=== PATIENT | female | born 1980 | race Caucasian/White ===

== ENCOUNTER → 2017-10-27 | Outpatient (CLI) | payer MEDICAID, OTHER ==
[2017-10-27 11:46] LABS: ABSOLUTE EOSINOPHILS # (AUTO) 0.2 10^3/uL (0.0-0.6); ABSOLUTE LYMPHOCYTES (AUTO) 1.7 10^3/uL (0.5-4.7); ABSOLUTE MONOCYTES (AUTO) 0.5 10^3/uL (0.1-1.4); ABSOLUTE NEUT (AUTO) 4.2 10^3/uL (1.7-8.2); BASOPHILS % (AUTO) 0.4 % (0-2); EOSINOPHILS % (AUTO) 2.4 % (0-6); HEMATOCRIT 40.1 % (36.0-47.0); HEMOGLOBIN 13.9 g/dL (12.0-15.5); HGB HCT DIFFERENCE 1.6; LYMPHOCYTES % (AUTO) 25.6 % (13-45); MEAN CORPUSCULAR HEMOGLOBIN 29.5 pg (27.0-33.4); MEAN CORPUSCULAR HGB CONC 34.7 g/dL (32.0-36.0); MEAN CORPUSCULAR VOLUME 85 fl (80-97); MONOCYTES % (AUTO) 7.2 % (3-13); RED BLOOD COUNT 4.72 10^6/uL (3.72-5.28); RED CELL DISTRIBUTION WIDTH 13.6 % (11.5-14.0); SEGMENTED NEUTROPHILS % (AUTO) 64.4 % (42-78); WHITE BLOOD COUNT 6.6 10^3/uL (4.0-10.5)
--- NOTE | 2017-10-27 11:54 | EKG REPORT ---
SEVERITY:- BORDERLINE ECG - SINUS RHYTHM INFERIOR Q WAVES, PROBABLY NORMAL VARIATION : Confirmed by: Kalen Garcia 27-Oct-2017 11:53:08
[2017-10-27 12:17] LABS: ANION GAP 13 (5-19); BLOOD UREA NITROGEN 14 mg/dL (7-20); CALCIUM 9.7 mg/dL (8.4-10.2); CARBON DIOXIDE 25 mmol/L (22-30); CHLORIDE 104 mmol/L (98-107); CREATININE RESULT 0.59 mg/dL (0.52-1.25); GLUCOSE 72 mg/dL (75-110); POTASSIUM 4.5 mmol/L (3.6-5.0); SODIUM 142.4 mmol/L (137-145)
== END ==
LOC: OD 10:06
PROVIDERS: ATTEND Orthopaedic Surgery
DX: Z01.810 Encounter for preprocedural cardiovascular examination (principal); Z01.812 Encounter for preprocedural laboratory examination; Z01.818 Encounter for other preprocedural examination
CPT/HCPCS: 36415; 80048; 85025; 93005; 93010

== ENCOUNTER 2018-02-06 02:58 | Emergency (ER) | payer OTHER ==
[2018-02-06] MEDS ORDERED: FENTANYL CITRATE INJ/PF 100 MCG/2 ML AMPUL IV ONE ×2 (03:11→05:59)
[2018-02-06] MEDS ORDERED: NORMAL SALINE 1000 ML 1,000 ML IV ONE (03:11)
--- NOTE | 2018-02-06 03:14 | ER Document Report ---
ED General <JORGE REYES - Last Filed: 02/06/18 06:40> <VANCE ARAMBULA E - Last Filed: 02/06/18 12:07> - General Chief Complaint: Abdominal Pain Stated Complaint: ABDOMINAL PAIN Time Seen by Provider: 02/06/18 03:06 Notes: Patient is a 37-year-old female presents with complaint of right upper quadrant abdominal pain for 2 days. Pain is much worse with eating. Nausea. No vomiting. No diarrhea. No fevers. Previous abdominal surgery includes hysterectomy. No history of abdominal cancers. No other complaints at this time. No dysuria. She does not drink alcohol. She does not smoke or do drugs. (JORGE REYES) - Related Data Allergies/Adverse Reactions: latex Allergy (Verified 02/06/18 03:00) levofloxacin Allergy (Verified 02/06/18 03:00) Past Medical History - Social History Smoking Status: Never Smoker Frequency of alcohol use: None Drug Abuse: None Family History: Reviewed & Not Pertinent <JORGE REYES - Last Filed: 02/06/18 06:40> Review of Systems <JORGE REYES - Last Filed: 02/06/18 06:40> <VANCE ARAMBULA E - Last Filed: 02/06/18 12:07> - Review of Systems Notes: My Normal Review Basic REVIEW OF SYSTEMS: CONSTITUTIONAL : Denies fever, chills, or sweats. Denies recent illness. RESPIRATORY: Denies cough, cold, or chest congestion. Denies shortness of breath, difficulty breathing, or wheezing. GASTROINTESTINAL: Right upper quadrant abdominal pain. Some nausea. GENITOURINARY: Denies difficulty urinating, painful urination, burning, frequency, or blood in urine. FEMALE GENITOURINARY: Previous hysterectomy MUSCULOSKELETAL: Denies neck or back pain or joint pain or swelling. SKIN: Denies rash or skin lesions. NEUROLOGICAL: Denies altered mental status or loss of consciousness. Denies headache. Denies weakness or paralysis or loss of use of either side. Denies problems with gait or speech. Denies sensory or motor loss. ALL OTHER SYSTEMS REVIEWED AND NEGATIVE. (JORGE REYES) Physical Exam <JORGE REYES - Last Filed: 02/06/18 06:40> <VANCE ARAMBULA E - Last Filed: 02/06/18 12:07> - Vital signs Vitals: Temp Pulse Resp BP Pulse Ox 98.2 F 81 18 120/70 99 02/06/18 03:03 02/06/18 03:03 02/06/18 03:03 02/06/18 03:03 02/06/18 03:03 - Notes Notes: General Appearance: Well nourished, alert, cooperative, no acute distress, moderate obvious discomfort. Vitals: reviewed, See vital signs table. Head: no swelling or tenderness to the head Eyes: PERRL, EOMI, Conjuctiva clear Mouth: No decreasd moisture Lungs: No wheezing, No rales, No rhonci, No accessory muscle use, good air exchange bilaterally. Heart: Normal rate, Regular rythm, No murmur, no rub Abdomen: Normal BS, soft, No rigidity, moderate right upper quadrant abdominal tenderness to palpation, No guarding, no rebound, Extremities: strength 5/5 in all extremities, good pulses in all extremities, no swelling or tenderness in the extremities, no edema. Skin: warm, dry, appropriate color, no rash Neuro: speech clear, oriented x 3, normal affect, responds appropriately to questions. (JORGE REYES) Course - Laboratory Result Diagrams: 02/06/18 04:00 02/06/18 04:00 <JORGE REYES - Last Filed: 02/06/18 06:40> - Laboratory Result Diagrams: 02/06/18 04:00 02/06/18 04:00 - Diagnostic Test Radiology reviewed: Image reviewed, Reports reviewed <VANCE ARAMBULA - Last Filed: 02/06/18 12:07> - Re-evaluation Re-evalutation: 02/06/18 06:40 Based on patient's history and exam I suspect she has biliary dyskinesia. I did talk to the patient about outpatient follow-up with surgery clinic versus waiting here for a HIDA scan. She continues to have recurrent pain as soon as the pain medicine wears off and therefore she does request to see her for a HIDA scan. I suspect that she most likely does have a biliary dysfunction. Will wait for the results of the HIDA scan. (JORGE REYES) 02/06/18 06:00 Sign-out from Dr. Reyes. 37 yo female with RUQ pain after eating. RUQ US and blood work are normal, other than a positive Chaves's sign. HIDA scan pending. 02/06/18 11:59 HIDA scan is normal and does not show evidence of biliary dyskinesia. Patient's pain and nausea have improved. Spoke to Surgeon (Dr. Gibson) about normal HIDA scan and he recommends patient following-up with GI. Pt understands and is comfortable with plan. Given strict return precautions. ( VANCE ARAMBULA) - Vital Signs Vital signs: Temp Pulse Resp BP Pulse Ox 98.2 F 81 18 120/70 99 02/06/18 03:03 02/06/18 03:03 02/06/18 03:03 02/06/18 03:03 02/06/18 03:03 - Laboratory Laboratory results interpreted by me: 02/06/18 04:00 Total Protein 6.2 L - Diagnostic Test Radiology results interpreted by me: HIDA: Normal EF, No evidence of biliary dyskinesia (VANCE ARAMBULA) Discharge <JORGE REYES - Last Filed: 02/06/18 06:40> <VANCE ARAMBULA - Last Filed: 02/06/18 12:07> - Discharge Clinical Impression: Right upper quadrant abdominal pain Condition: Stable Disposition: HOME, SELF-CARE Additional Instructions: ABDOMINAL PAIN: There are many causes of abdominal pain. Pain can mean a serious problem requiring surgery (such as appendicitis). It can also be an innocent problem that goes away on its own (such as a viral infection). Often, time must pass to determine the cause of pain. The physician does not feel that hospitalization is necessary, at present. Things may change within the next 24 hours. Call the doctor or come back for re- examination if any problems occur, such as: (1) Pain that becomes more severe, steady, or becomes concentrated in one specific area. Also, pain that is more severe with movement or coughing. (2) Vomiting that persists or becomes more frequent. (3) Blood in the vomitus, urine, or bowel movements. Blood in the stool may have a tarry or black appearance. (4) Shaking chills or fever greater than 100 degrees F. (5) The abdomen becomes more distended or swollen. (6) Bowel movements cease. (7) Failure to improve as expected. NORMAL EXAM AND WORKUP: At this time, your examination and workup show no significant abnormality. No significant abnormal physical findings are noted. All laboratory, EKG, and imaging (x-ray, CT scans, ultrasound) studies that were ordered show no significant abnormality. Although your examination and all studies that were ordered showed no significant abnormal finding, there are no examinations and no studies that are 100% accurate. There is always the possibility that some abnormality could exist and not be detected with physical examination or within the limits and capabilities of laboratory and other studies. You should return or follow up as you were instructed on your visit today for further evaluation if your symptoms do not resolve. FOLLOW-UP CARE: If you have been referred to a physician for follow-up care, call the physician s office for an appointment as you were instructed or within the next two days. If you experience worsening or a significant change in your symptoms, notify the physician immediately or return to the Emergency Department at any time for re-evaluation. Referrals: JEANA HUDSON, [Primary Care Provider] - Follow up as needed KATHYA PERKINS MD [ACTIVE STAFF] - Follow up as needed
--- NOTE | 2018-02-06 04:00 | RADIOLOGY REPORT (SQ) ---
EXAM DESCRIPTION: U/S ABDOMEN LTD W/DOPPLER CLINICAL HISTORY: 37 years, Female, RUQ abdominal pain COMPARISON: None. LIMITATIONS: Bowel gas artifact. FINDINGS: Supine views of the gallbladder partially obscured due to bowel gas artifact. Else, gallbladder appears unremarkable. Sonographic Chaves's test is positive, a nonspecific finding given that no gallstones were identified. No intra or extrahepatic ductal dilation including a 0.4 cm diameter common bile duct. Pancreas, aorta, liver, and 13 cm right kidney appear otherwise unremarkable. No ascites. IMPRESSION: No acute findings. Limitation. Sonographic Chaves's test is positive, a nonspecific finding, given that no cholelithiasis was identified.
[2018-02-06 04:14] LABS: ABSOLUTE EOSINOPHILS # (AUTO) 0.2 10^3/uL (0.0-0.6); ABSOLUTE LYMPHOCYTES (AUTO) 2.1 10^3/uL (0.5-4.7); ABSOLUTE MONOCYTES (AUTO) 0.8 10^3/uL (0.1-1.4); ABSOLUTE NEUT (AUTO) 6.9 10^3/uL (1.7-8.2); APPEARANCE,URINE CLEAR; BASOPHILS % (AUTO) 0.3 % (0-2); BILIRUBIN,URINE NEGATIVE (NEGATIVE); COLOR,URINE YELLOW; EOSINOPHILS % (AUTO) 1.5 % (0-6); GLUCOSE, URINE NEGATIVE (NEGATIVE); HEMATOCRIT 40.5 % (36.0-47.0); HEMOGLOBIN 13.8 g/dL (12.0-15.5); KETONES,URINE NEGATIVE (NEGATIVE); LEUKOCYTE ESTERASE,URINE NEGATIVE (NEGATIVE); LYMPHOCYTES % (AUTO) 21.4 % (13-45); MEAN CORPUSCULAR HEMOGLOBIN 28.6 pg (27.0-33.4); MEAN CORPUSCULAR VOLUME 84 fl (80-97); MONOCYTES % (AUTO) 7.9 % (3-13); NITRITE,URINE NEGATIVE (NEGATIVE); PLATELET COUNT 338 10^3/uL (150-450); PROTEIN,URINE NEGATIVE (NEGATIVE); RED BLOOD COUNT 4.81 10^6/uL (3.72-5.28); RED CELL DISTRIBUTION WIDTH 13.2 % (11.5-14.0); SEGMENTED NEUTROPHILS % (AUTO) 68.9 % (42-78); TOTAL CELLS COUNTED % (AUTO) 100 %; URINE SPECIFIC GRAVITY 1.013; UROBILINOGEN,URINE NEGATIVE mg/dL (<2.0)
[2018-02-06 04:25] LABS: ALANINE AMINOTRANSFERASE 40 U/L (9-52); ALBUMIN 4.4 g/dL (3.5-5.0); ALKALINE PHOSPHATASE 52 U/L (38-126); ANION GAP 13 (5-19); ASPARTATE AMINO TRANSFERASE 23 U/L (14-36); BILIRUBIN,DIRECT 0.2 mg/dL (0.0-0.4); BILIRUBIN,TOTAL 0.5 mg/dL (0.2-1.3); BLOOD UREA NITROGEN 13 mg/dL (7-20); CALCIUM 10.1 mg/dL (8.4-10.2); CARBON DIOXIDE 24 mmol/L (22-30); CHLORIDE 105 mmol/L (98-107); GLUCOSE 90 mg/dL (75-110); LIPASE 37.5 U/L (23-300); POTASSIUM 4.7 mmol/L (3.6-5.0); SODIUM 141.6 mmol/L (137-145); TOTAL PROTEIN 6.2 g/dL (6.3-8.2)
[2018-02-06] MEDS ORDERED: HYDROMORPHONE HCL INJ/PF 2 MG/ML AMPULE IV ONE (04:43)
[2018-02-06] MEDS ORDERED: FENTANYL CITRATE INJ/PF 100 MCG/2 ML AMPUL ONE (05:47)
--- NOTE | 2018-02-06 11:36 | RADIOLOGY REPORT (SQ) ---
EXAM DESCRIPTION: NM HIDA SCAN WITH CCK COMPLETED DATE/TIME: 02/06/2018 11:23 am REASON FOR STUDY: RUQ abdominal pain COMPARISON: None. RADIONUCLIDE AND DOSE: DOSAGE RADIONUCLIDE: 5.23 millicuries Tc99m Mebrofenin. DOSAGE CCK: 1.9 micrograms. DOSAGE MORPHINE: Not required. The route of agent administration: Intravenous TECHNIQUE: Serial imaging right upper quadrant up to 60 minutes following injection of radionuclide. CCK injected after gallbladder visualized. LIMITATIONS: None. FINDINGS: LIVER: Normal visualization without areas of photopenia. INTRAHEPATIC BILE DUCTS: Normal size and no delay in visualization. COMMON BILE DUCT: Normal without dilatation. GALLBLADDER: Normal visualization. Calculated ejection fraction of 63%. Normal range is greater th an 35%. PHYSICAL RESPONSE: Patients presenting complaint was reproduced. OTHER: No other significant finding. IMPRESSION: NORMAL STUDY WITHOUT CYSTIC OR COMMON DUCT OBSTRUCTION. NORMAL GALLBLADDER EJECTION FRA CTION. NO EVIDENCE FOR BILIARY DYSKINESIS. TECHNICAL DOCUMENTATION: JOB ID: [id number] [employer]- All Rights Reserved Reading location - IP/workstation name: [email or web address]
[2018-02-06 12:27] VITALS: BP 113/61
== END 2018-02-06 12:25 | disposition home or self-care (01) ==
LOC: ER 02:58
DX: R10.11 Right upper quadrant pain (principal); R11.0 Nausea; Z91.040 Latex allergy status
CPT/HCPCS: 96376; 99284; 96361; 96374; 36415; 83690; 85025; 80053; 81001; 76705; 93976; 78227; J2805; A9537; J3010; J7030; Q9969

== ENCOUNTER 2018-07-25 21:08 | Emergency (ER) | payer OTHER ==
[2018-07-25] MEDS ORDERED: KETOROLAC TROMETHAMINE 60 MG/2 ML SDV IM ONE (22:46)
[2018-07-25] MEDS ORDERED: DIAZEPAM INJ 10 MG/2 ML DISP.SYRIN IM ONE (22:46)
--- NOTE | 2018-07-25 23:04 | ER Document Report ---
HPI - HPI Patient complains to provider of: lower back pain Pain Level: 4 Context: Patient is a 38-year-old female that comes to the emergency department for chief complaint of lower back pain. She states she was at work when suddenly she felt like her lower back "seized up" with this a spasming feeling. She states it became so painful she almost could not walk. She states it has not stopped spasming. She states that she has been evaluated and treated over the past 2 years for her lower back and has been diagnosed with sacroiliac syndrome , she states her MRI of the back also showed some arthritis but no other abnormalities, she states that she has been treated with meloxicam and Robaxin intermittently but no other medications for this. She denies numbness, incontinence, or ever using IV/recreational drugs. Past medical history of hysterectomy. Past Medical History - General Information source: Patient - Social History Smoking Status: Never Smoker Frequency of alcohol use: None Drug Abuse: None Lives with: Family Family History: Reviewed & Not Pertinent Renal/ Medical History: Denies: Hx Peritoneal Dialysis Musculoskeletal Medical History: Reports Hx Musculoskeletal Deformity Past Surgical History: Reports: Hx Hysterectomy Vertical Provider Document - CONSTITUTIONAL General Appearance: Mild Distress - Patient lying on the bed on her side, moves with obvious pain, appears somewhat uncomfortable but not in severe distress - INFECTION CONTROL TRAVEL OUTSIDE OF THE [place] IN LAST 30 DAYS: No - HEENT HEENT: Atraumatic, Normocephalic - NECK Neck: Normal Inspection - RESPIRATORY Respiratory: Breath Sounds Normal, No Respiratory Distress - CARDIOVASCULAR Cardiovascular: Regular Rate, Regular Rhythm - GI/ABDOMEN Gastrointestinal: Abdomen Soft, Abdomen Non-Tender - BACK Back: negative: Normal Inspection - Tenderness over the left paralumbar musculature with some areas of rigid spasm. No midline tenderness, no saddle anesthesia, no signs of trauma. Normal upper and lower extremity range of motion , normal strength, normal distal neurovascular exam. Course - Re-evaluation Re-evalutation: No concerning neurological symptoms or neurological deficits reported or noted on examination. Patient does have area in her left lumbar area consistent with muscular spasm, obvious pain with movement, no radiating symptoms however. After Valium and Toradol patient sitting up on the bed, spasm significantly reduced, able to ambulate, much improved. No history of IV drug abuse, no fever. Low suspicion of infection or spinal cord compression. Discussed treatment, follow-up, and return precautions. Patient states gratefulness for care and agreement with plan. - Vital Signs Vital signs: Temp Pulse Resp BP Pulse Ox 97.6 F 79 16 133/92 H 100 07/25/18 21:17 07/25/18 21:17 07/25/18 21:17 07/25/18 21:17 07/25/18 21:17 Discharge - Discharge Clinical Impression: Muscle spasm Lower back pain Qualifiers: Chronicity: acute Back pain laterality: left Sciatica presence: without sciatica Qualified Code(s): M54.5 - Low back pain Condition: Stable Disposition: HOME, SELF-CARE Additional Instructions: Your examination is most consistent with a muscular spasm of the lumbar paraspinal muscles. Take the prescribed diazepam for muscle spasm, apply heat to the area, rest, avoid lifting and twisting. Take anti-inflammatory along with it. Stay hydrated. Follow-up with your provider for additional evaluation and management. Return if you worsen including developing numbness, inability to urinate, accidentally moving your bowels, fever, or any other concerning or worsening symptoms. Prescriptions: Diazepam [Valium 5 mg Tablet] 1 - 2 tab PO TID PRN #12 tablet PRN Reason: Naproxen 500 mg PO BID PRN #20 tablet PRN Reason: Forms: Return to Work Referrals: JEANA HUDSON DO [Primary Care Provider] - Follow up as needed
[2018-07-26 00:45] VITALS: BP 128/78
== END 2018-07-26 00:20 | disposition home or self-care (01) ==
LOC: ER 21:08
DX: M62.830 Muscle spasm of back (principal); M47.9 Spondylosis, unspecified; M54.5 Low back pain; M53.3 Sacrococcygeal disorders, not elsewhere classified
CPT/HCPCS: 99283; 96372; J3360; J1885

== ENCOUNTER 2018-09-11 17:46 | Emergency (ER) | payer OTHER ==
[2018-09-11] MEDS ORDERED: NORMAL SALINE 1000 ML 1,000 ML IV ONE (18:27)
[2018-09-11] MEDS ORDERED: ONDANSETRON HCL INJ/PF 4 MG/2 ML SDV IV ONE (18:28)
--- NOTE | 2018-09-11 18:28 | ER Document Report ---
ED Medical Screen (RME) - General Chief Complaint: Syncope Stated Complaint: DIZZY, VOMITING Time Seen by Provider: 09/11/18 18:16 TRAVEL OUTSIDE OF THE [place] IN LAST 30 DAYS: No - HPI Notes: 09/11/18 18:28 Syncope while at work - Related Data Allergies/Adverse Reactions: latex Allergy (Verified 02/06/18 03:00) levofloxacin Allergy (Verified 02/06/18 03:00) Past Medical History - Social History Chew tobacco use (# tins/day): No Frequency of alcohol use: None Drug Abuse: None Renal/ Medical History: Denies: Hx Peritoneal Dialysis Musculoskeltal Medical History: Reports Hx Musculoskeletal Deformity Past Surgical History: Reports: Hx Hysterectomy Review of Systems - Review of Systems Cardiovascular: Syncope Physical Exam - Vital signs Vitals: Temp Pulse Resp BP Pulse Ox 98.6 F 82 16 105/80 95 09/11/18 18:09 09/11/18 18:09 09/11/18 18:09 09/11/18 18:09 09/11/18 18:09 - Respiratory Respiratory status: No respiratory distress Chest status: Nontender Breath sounds: Normal Chest palpation: Normal - Cardiovascular Rhythm: Regular Heart sounds: Normal auscultation Course - Vital Signs Vital signs: Temp Pulse Resp BP Pulse Ox 98.6 F 82 16 105/80 95 09/11/18 18:09 09/11/18 18:09 09/11/18 18:09 09/11/18 18:09 09/11/18 18:09 Doctor's Discharge - Discharge Referrals: JEANA HUDSON DO [Primary Care Provider] - Follow up as needed
[2018-09-11 19:04] LABS: ABSOLUTE EOSINOPHILS # (AUTO) 0.1 10^3/uL (0.0-0.6); ABSOLUTE LYMPHOCYTES (AUTO) 2.1 10^3/uL (0.5-4.7); ABSOLUTE MONOCYTES (AUTO) 0.7 10^3/uL (0.1-1.4); ABSOLUTE NEUT (AUTO) 7.4 10^3/uL (1.7-8.2); BASOPHILS % (AUTO) 0.3 % (0-2); EOSINOPHILS % (AUTO) 0.9 % (0-6); HEMATOCRIT 44.5 % (36.0-47.0); HEMOGLOBIN 15.6 g/dL (12.0-15.5); LYMPHOCYTES % (AUTO) 20.5 % (13-45); MEAN CORPUSCULAR HEMOGLOBIN 30.2 pg (27.0-33.4); MEAN CORPUSCULAR HGB CONC 35.2 g/dL (32.0-36.0); MEAN CORPUSCULAR VOLUME 86 fl (80-97); MONOCYTES % (AUTO) 6.3 % (3-13); PLATELET COUNT 279 10^3/uL (150-450); RED BLOOD COUNT 5.18 10^6/uL (3.72-5.28); RED CELL DISTRIBUTION WIDTH 13.3 % (11.5-14.0); TOTAL CELLS COUNTED % (AUTO) 100 %; WHITE BLOOD COUNT 10.3 10^3/uL (4.0-10.5)
[2018-09-11 19:18] LABS: ALANINE AMINOTRANSFERASE 35 U/L (9-52); ALBUMIN 4.4 g/dL (3.5-5.0); ALKALINE PHOSPHATASE 65 U/L (38-126); ANION GAP 10 (5-19); ASPARTATE AMINO TRANSFERASE 23 U/L (14-36); BILIRUBIN,DIRECT 0.2 mg/dL (0.0-0.4); BILIRUBIN,TOTAL 0.6 mg/dL (0.2-1.3); BLOOD UREA NITROGEN 17 mg/dL (7-20); CALCIUM 10.1 mg/dL (8.4-10.2); CARBON DIOXIDE 27 mmol/L (22-30); CHLORIDE 102 mmol/L (98-107); CREATINE KINASE 39 U/L (30-135); GLUCOSE 93 mg/dL (75-110); LIPASE 41.3 U/L (23-300); POTASSIUM 3.9 mmol/L (3.6-5.0); SODIUM 139.1 mmol/L (137-145); TOTAL PROTEIN 6.6 g/dL (6.3-8.2)
--- NOTE | 2018-09-11 19:43 | ER Document Report ---
"ED General - General Chief Complaint: Syncope Stated Complaint: DIZZY, VOMITING Time Seen by Provider: 09/11/18 18:16 Notes: Patient is a 38-year-old female presenting to the emergency department after a syncopal episode today at work. 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 According to coworkers at work she did have a syncopal episode lasting about 1 minute. Was helped to the ground. Patient states she did vomit x1. Patient states she has an extensive history of lower back pain with herniated disc L3-L4 and L5. She is supposed to be having surgery the end of September and then potential stem cell transplant. Patient states her lower back has been hurting her more so recently. Patient states at no time was she experiencing chest pain, shortness of breath, abdominal pain. Currently in emergency department she is denying all complaints to include chest pain, shortness of breath, abdominal pain, nausea, vomiting, diarrhea, URI symptoms, fever, dysuria, vaginal discharge. Past medical history: Depression, anxiety Medications: Zoloft, BuSpar Allergies: levofloxacin Surgical history: Breast reduction, partial hysterectomy, carpal tunnel Patient's primary care provider is Dr. Hudson TRAVEL OUTSIDE OF THE [place] IN LAST 30 DAYS: No - Related Data Allergies/Adverse Reactions: latex Allergy (Verified 02/06/18 03:00) levofloxacin Allergy (Verified 02/06/18 03:00) Past Medical History - General Information source: Patient - Social History Smoking Status: Never Smoker Chew tobacco use (# tins/day): No Frequency of alcohol use: None Drug Abuse: None Lives with: Family Family History: Reviewed & Not Pertinent Patient has suicidal ideation: No Patient has homicidal ideation: No Renal/ Medical History: Denies: Hx Peritoneal Dialysis Musculoskeletal Medical History: Reports Hx Musculoskeletal Deformity Past Surgical History: Reports: Hx Hysterectomy Review of Systems - Review of Systems Constitutional: See HPI EENT: See HPI Cardiovascular: See HPI Respiratory: See HPI Gastrointestinal: See HPI Genitourinary: See HPI Female Genitourinary: See HPI Musculoskeletal: See HPI Skin: See HPI Hematologic/Lymphatic: See HPI Neurological/Psychological: See HPI Physical Exam - Vital signs Vitals: Temp Pulse Resp BP Pulse Ox 98.6 F 82 16 105/80 95 09/11/18 18:09 09/11/18 18:09 09/11/18 18:09 09/11/18 18:09 09/11/18 18:09 - Notes Notes: GENERAL: Alert, interacts well. No acute distress. HEAD: Normocephalic, atraumatic. EYES: Pupils equal, round, and reactive to light. Extraocular movements intact. ENT: Oral mucosa moist, tongue midline. NECK: Full range of motion. Supple. Trachea midline. LUNGS: Clear to auscultation bilaterally, no wheezes, rales, or rhonchi. No respiratory distress. HEART: Regular rate and rhythm. No murmur ABDOMEN: Soft, non-tender. Non-distended. Bowel sounds present in all 4 quadrants. EXTREMITIES: Moves all 4 extremities spontaneously. No edema, normal radial and dorsalis pedis pulses bilaterally. No cyanosis. BACK: no cervical, thoracic midline tenderness. Minor pain lumbar spinal region , more so pain paraspinal lumbar region. Patient states this pain is her normal due to her herniated disks. No saddle anesthesia, normal distal neurovascular exam. NEUROLOGICAL: Alert and oriented x3. Normal speech. cranial nerves II through XII grossly intact. PSYCH: Normal affect, normal mood. SKIN: Warm, dry, normal turgor. No rashes or lesions noted. Course - Re-evaluation Re-evalutation: 09/11/18 19:47 Patient is currently complaint free in the emergency department. Orthostatics negative for dehydration although patient has already had 1 L of fluid in the emergency department. 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 Patient states she has felt a whole lot better now resting in the emergency department. Patient states now that she has not on her feet constantly her lower back pain has eased up. Patient states she will call her primary care doctor Dr. Hudson in the next 24-40 hours for follow-up. Return precautions given. - Vital Signs Vital signs: Temp Pulse Resp BP Pulse Ox 97.7 F 63 18 117/79 99 09/11/18 20:08 09/11/18 20:08 09/11/18 20:08 09/11/18 20:08 09/11/18 20:08 - Laboratory Result Diagrams: 09/11/18 18:48 09/11/18 18:48 Laboratory results interpreted by me: 09/11/18 18:48 Hgb 15.6 H Discharge - Discharge Clinical Impression: Syncope Qualifiers: Syncope type: vasovagal syncope Qualified Code(s): R55 - Syncope and collapse Condition: Stable Disposition: HOME, SELF-CARE Instructions: Syncopal Episode ([facility]) Additional Instructions: As we discussed you should continue to keep yourself well-hydrated. Continue to take as many breaks as needed at work. Please follow-up with your primary care provider in the next 24-48 hours. Return to the emergency room should you feel lightheaded, dizzy, weak, had chest pain, or any other concerning symptoms. Referrals: JEANA HUDSON, [Primary Care Provider] - Follow up as needed"
[2018-09-11 20:10] VITALS: BP 117/79
--- NOTE | 2018-09-11 21:44 | EKG REPORT ---
SEVERITY:- NORMAL ECG - SINUS RHYTHM : Confirmed by: Jamshid Figueroa MD 11-Sep-2018 21:44:06
== END 2018-09-11 20:11 | disposition home or self-care (01) ==
LOC: ER 17:46
DX: R55 Syncope and collapse (principal); R42 Dizziness and giddiness; R11.10 Vomiting, unspecified; Z91.040 Latex allergy status; Z90.710 Acquired absence of both cervix and uterus
CPT/HCPCS: 93005; 99284; 96361; 96374; 36415; 82550; 83690; 85025; 80053; 93010; J2405; J7030

== ENCOUNTER → 2018-10-01 | Outpatient (CLI) | payer OTHER ==
[2018-10-01 17:33] LABS: ALANINE AMINOTRANSFERASE 26 U/L (9-52); ALBUMIN 4.4 g/dL (3.5-5.0); ALKALINE PHOSPHATASE 68 U/L (38-126); ANION GAP 12 (5-19); ASPARTATE AMINO TRANSFERASE 17 U/L (14-36); BILIRUBIN,DIRECT 0.3 mg/dL (0.0-0.4); BILIRUBIN,TOTAL 0.7 mg/dL (0.2-1.3); BLOOD UREA NITROGEN 17 mg/dL (7-20); CALCIUM 9.6 mg/dL (8.4-10.2); CARBON DIOXIDE 29 mmol/L (22-30); CHLORIDE 103 mmol/L (98-107); GLUCOSE 93 mg/dL (75-110); POTASSIUM 4.4 mmol/L (3.6-5.0); SODIUM 144.1 mmol/L (137-145); TOTAL PROTEIN 6.7 g/dL (6.3-8.2)
[2018-10-01 18:30] LABS: ABSOLUTE EOSINOPHILS # (AUTO) 0.1 10^3/uL (0.0-0.6); ABSOLUTE LYMPHOCYTES (AUTO) 2.1 10^3/uL (0.5-4.7); ABSOLUTE MONOCYTES (AUTO) 0.6 10^3/uL (0.1-1.4); ABSOLUTE NEUT (AUTO) 6.9 10^3/uL (1.7-8.2); BASOPHILS % (AUTO) 0.4 % (0-2); HEMATOCRIT 42.2 % (36.0-47.0); HEMOGLOBIN 14.9 g/dL (12.0-15.5); LYMPHOCYTES % (AUTO) 21.3 % (13-45); MEAN CORPUSCULAR HEMOGLOBIN 29.9 pg (27.0-33.4); MEAN CORPUSCULAR HGB CONC 35.2 g/dL (32.0-36.0); MEAN CORPUSCULAR VOLUME 85 fl (80-97); MONOCYTES % (AUTO) 6.4 % (3-13); PLATELET COUNT 283 10^3/uL (150-450); RED BLOOD COUNT 4.96 10^6/uL (3.72-5.28); RED CELL DISTRIBUTION WIDTH 13.6 % (11.5-14.0); SEGMENTED NEUTROPHILS % (AUTO) 70.9 % (42-78); TOTAL CELLS COUNTED % (AUTO) 100 %; WHITE BLOOD COUNT 9.7 10^3/uL (4.0-10.5)
== END ==
LOC: LAB 16:07
PROVIDERS: ATTEND Student in an Organized Health Care Education/Training Program
DX: Z01.810 Encounter for preprocedural cardiovascular examination (principal); Z01.818 Encounter for other preprocedural examination
CPT/HCPCS: 36415; 80053; 84703; 85025

== ENCOUNTER → 2019-01-10 | Outpatient (CLI) | payer OTHER ==
[2019-01-10 13:03] LABS: ANION GAP 11 (5-19); BLOOD UREA NITROGEN 15 mg/dL (7-20); CALCIUM 10.6 mg/dL (8.4-10.2); CARBON DIOXIDE 32 mmol/L (22-30); CHLORIDE 97 mmol/L (98-107); GLUCOSE 89 mg/dL (75-110); POTASSIUM 4.9 mmol/L (3.6-5.0); SODIUM 139.8 mmol/L (137-145)
== END ==
LOC: OD 11:50
PROVIDERS: ATTEND Internal Medicine
DX: M31.6 Other giant cell arteritis (principal); N19 Unspecified kidney failure
CPT/HCPCS: 36415; 80048; 85652

== ENCOUNTER → 2019-01-13 | Outpatient (CLI) | payer OTHER | LOC: OD 09:43 | PROVIDERS: ATTEND Internal Medicine | DX: R79.89 Other specified abnormal findings of blood chemistry (principal) | CPT/HCPCS: 36415; 83970 ==

== ENCOUNTER → 2019-02-24 | Outpatient (CLI) | payer OTHER ==
--- NOTE | 2019-02-24 08:40 | RADIOLOGY REPORT (SQ) ---
EXAM DESCRIPTION: NOSE/NASAL BONES COMPLETED DATE/TIME: 02/24/2019 8:21 am REASON FOR STUDY: CONTUSION OF NOSE, INITIAL ENCOUNTER E61.1 IRON DEFICIENCY E83.52 HYPERCALCEMIA S00.33XA CONTUSION OF NOSE, INITIAL ENCOUNTER COMPARISON: None. NUMBER OF VIEWS: Three view. TECHNIQUE: Images of the facial bones acquired. LIMITATIONS: None. FINDINGS: ORBITS: No fracture. No foreign body. SINUSES: No mucosal thickening. No air fluid levels. FACIAL BONES: Nondisplaced fracture of the nasal bone cartilage. The anterior nasal spine appears t o be intact. OTHER: No other significant finding. IMPRESSION: 1. Nondisplaced fracture of the nasal bone cartilage. TECHNICAL DOCUMENTATION: JOB ID: [id number] [employer]- All Rights Reserved Reading location - IP/workstation name: [email or web address]
[2019-02-24 09:32] LABS: IRON 98.1 ug/dL (37-170)
== END ==
LOC: OD 07:52
PROVIDERS: ATTEND Internal Medicine
DX: S02.2XXA Fracture of nasal bones, initial encounter for closed fracture (principal); X58.XXXA Exposure to other specified factors, initial encounter; E83.52 Hypercalcemia
CPT/HCPCS: 36415; 70160; 82374; 83540

== ENCOUNTER → 2019-03-23 | Outpatient (CLI) | payer OTHER ==
[2019-03-23 09:14] LABS: CHOLESTEROL 184.79 mg/dL (0-200); TRIGLYCERIDES 91 mg/dL (<150)
[2019-03-23 09:25] LABS: DIRECT LDL 129 mg/dL (<100)
== END ==
LOC: OD 08:11
PROVIDERS: ATTEND Internal Medicine
DX: E83.52 Hypercalcemia (principal)
CPT/HCPCS: 36415; 80061; 82310